=== PATIENT | male | born 1980 | race Hispanic/Latino ===

== ENCOUNTER 2017-11-23 11:58 | Emergency (ER) | payer SELFPAY ==
[~2017-11-23] VITALS: Ht 172.7 cm; Wt 181.4 kg
--- OUTSIDE RECORDS SUMMARY | 2017-11-23 12:01 | XMS REPORT ---
Author Author [facility] Address Unknown Phone Unavailable Care Team Providers Care Manufacturing Quality Inspector Name Role Phone Unavailable Unavailable Problems This patient has no known problems. Allergies, Adverse Reactions, Alerts This patient has no known allergies or adverse reactions. Medications This patient has no known medications. Encounters Start Date/Time End Date/Time Encounter Type Admission Type Attending [facility] Facility Care Department Encounter ID 2017-05-10 06:21:19 Inpatient [facility] [id number] 2017-08-15 00:00:00 2017-08-15 00:00:00 Outpatient [facility] [id number] 2017-06-27 00:00:00 2017-06-27 00:00:00 Outpatient [facility] [id number] 2017-06-02 00:00:00 2017-06-02 00:00:00 Outpatient [facility] [id number] 2017-05-23 00:00:00 2017-05-23 00:00:00 Outpatient [facility] [id number] 2017-05-09 08:09:21 2017-05-09 08:09:[address] [facility] [id number] 2017-05-09 07:37:44 2017-05-09 07:37:44 Emergency [facility] [id number]
[2017-11-23] MEDS ORDERED: VALACYCLOVIR HCL 500 MG TAB PO ONE (12:30)
[2017-11-23] MEDS ORDERED: DEXAMETHASONE SOD PHOS 10 MG/1 ML VIAL INJ ONE (12:30)
--- NOTE | 2017-11-23 13:10 | Diagnostic Imaging Report ---
EXAMINATION: Head CT HISTORY: Wall, with right facial numbness and right upper extremity numbness, evaluate for acute infarct COMPARISON: None. TECHNIQUE: Multidetector axial images were obtained without contrast from the foramen magnum to the vertex . The images were reconstructed using brain and bone algorithms. Thin section brain images were reformatted into coronal and sagittal planes. Intravenous contrast: None. Motion/streaking artifact limits the evaluation of the skull base and posterior cranial fossa. FINDINGS: Parenchyma: 1. No abnormal densities. 2. No mass or hemorrhage. No CT evidence of acute territorial vascular insult. Extra-axial spaces:No abnormal density. No extra-axial fluid collections Brain volume: Normal for age. Ventricles: No hydrocephalus or displacement. Arteries: No density suggestive of thrombus. Dural sinuses: No abnormal density. Extra-axial spaces: No abnormal density. Foramen magnum: No mass, Chiari malformation, or basilar invagination. Sella: No obvious mass. Paranasal/mastoid sinuses: Imaged portions unremarkable. Skull/Scalp: No lytic or blastic lesions. No fractures. IMPRESSION: No acute intracranial abnormalities, particularly no hemorrhage or CT evidence of acute territorial cortical vascular insults. If clinical concern remains for acute infarct, consider brain MRI for further evaluation. Signed by: Dr. Laura Guardado M.D. on 11/23/2017 1:07 PM
[2017-11-23 13:19] LABS: BASOPHILS % 0.3 % (0.0-1.0); EOSINOPHILS # (AUTO) 0.2 (0.0-0.4); EOSINOPHILS % 1.9 % (0.0-6.0); HEMATOCRIT 45.5 % (38.2-49.6); HEMOGLOBIN 13.2 g/dL (14.0-18.0); LYMPHOCYTES # (AUTO) 1.1 (1.0-3.2); LYMPHOCYTES % 14.6 % (18.0-39.1); MEAN CORPUSCULAR HEMOGLOBIN 23.2 pg (28-32); MONOCYTES # (AUTO) 0.6 (0.2-0.8); NEUTROPHILS # (AUTO) 5.8 (2.1-6.9); NEUTROPHILS % 74.7 % (38.7-80.0); PLATELET COUNT 212 x10e3/uL (140-360); RED BLOOD COUNT 5.69 x10e6/uL (4.3-5.7)
[2017-11-23 13:42] LABS: ALANINE AMINOTRANSFERASE 35 IU/L (0-55); ALBUMIN 3.8 g/dL (3.5-5.0); ALBUMIN/GLOBULIN RATIO 0.9 (0.8-2.0); ALKALINE PHOSPHATASE 92 IU/L (40-150); ANION GAP 11.9 mmol/L (8-16); BLOOD UREA NITROGEN 13 mg/dL (7-26); BUN/CREATININE RATIO 19 (6-25); CALCIUM 9.1 mg/dL (8.4-10.2); CARBON DIOXIDE 30 mmol/L (22-29); CHLORIDE 102 mmol/L (98-107); EST GLOMERULAR FILTRATION RATE > 60 ML/MIN (60-); GLUCOSE 70 mg/dL (74-118); POTASSIUM 3.9 mmol/L (3.5-5.1); SODIUM 140 mmol/L (136-145)
[2017-11-23 14:03] VITALS: BP 160/77
== END 2017-11-23 14:07 | disposition home or self-care (01) ==
LOC: ER 11:58
DX: G51.0 Bell's palsy (principal); E66.01 Morbid (severe) obesity due to excess calories; R03.0 Elevated blood-pressure reading, without diagnosis of hypertension
CPT/HCPCS: 36415; 70450; 80053; 85025; 93005; 99284; J1100